=== PATIENT | female | born 2000 | race Caucasian/White ===

== ENCOUNTER → 2025-01-07 10:16 | Outpatient (REF) | payer OTHER, SELFPAY | LOC: OHS 10:16 | PROVIDERS: ATTENDING PHYSICIAN Nurse Practitioner Family | DX: Z23 Encounter for immunization (principal) | CPT/HCPCS: 36415; 86480 ==

== ENCOUNTER → 2025-04-30 16:13 | Outpatient (REF) | payer OTHER, SELFPAY | LOC: RAD 16:13 | PROVIDERS: ATTENDING PHYSICIAN Nurse Practitioner Family | DX: M54.2 Cervicalgia (principal) | CPT/HCPCS: 72052 ==

== ENCOUNTER 2025-06-14 15:40 | Outpatient (RCR) | payer OTHER, SELFPAY | END 2025-06-14 23:59 | disposition home or self-care (01) | LOC: RPT 15:40 | PROVIDERS: ATTENDING PHYSICIAN Nurse Practitioner Family | DX: M54.2 Cervicalgia (principal); Z73.6 Limitation of activities due to disability; R20.0 Anesthesia of skin; R51.9 Headache, unspecified; Z87.820 Personal history of traumatic brain injury | CPT/HCPCS: 97110; 97140; 97162 ==